=== PATIENT | male | born 1960 | race Caucasian/White ===

== ENCOUNTER 2024-01-21 09:21 | Outpatient (CLI) | payer OTHER, SELFPAY ==
--- NOTE | ~2024-01-21 | PE_ITS ---
EXAMINATION: PET_PETPSMAST_PT DATE: 01/21/2024 12:08 INDICATION: Prostate cancer TECHNIQUE: 5.579 mCi of Illucix Ga-[id number]) was administered i.v. Low dose computed tong graphy (CT) images were acquired from the base of the brain to the base of the brain to the proximal thighs for attenuation correction and anatomic localization. Positron emission tomography (PET) image s were acquired in the same distribution beginning 83 minutes after injection. Images including fused PET/CT images were reconstructed in axial, coronal, and sagittal planes. Automated exposure control technique was employed. The dose-length product was 845.71mGy-cm. COMPARISON: None FINDINGS: Head/neck: Typical pattern of symmetric physiologic increased activity in the lacrimal, parotid and submandibula r glands as well as along the mucosa of the nasal and oral cavities, pharynx and hypopharynx. No path ologically enlarged cervical lymphadenopathy or suspicious foci of increased uptake in the visualized head or neck. Chest: Tubular V-shaped nodular density measuring 7 mm in maximal diameter at the apical segment of the left upper lobe without abnormal PSMA uptake most consistent with a bronchocele. Mild dependent atelectas is in bilateral lower lobes. No other suspicious pulmonary nodules, pneumonia, pulmonary edema or ple ural effusion. Heart size is normal. Coronary artery stenting along the left anterior descending marilou nary artery. Single lead cardiac pacemaker/defibrillator with lead tip near the apex of the right surekha tricle. No pericardial effusion. No pathologically enlarged or PSMA avid thoracic lymphadenopathy. Abdomen/pelvis/proximal thighs: Physiologic renal accumulation and excretion of activity in the kidneys, bladder and along portions o f ureters. Prostatomegaly measuring 4.6 x 3.5 cm. There is an approximately 1 cm focus of increased u ptake at the left posterior peripheral zone of the prostate with maximal SUV of 13.3 consistent with reported biopsy-proven prostate cancer. Normal degree and slightly heterogenous pattern of increased uptake throughout the liver and spleen without radiologic correlate or dominant PSMA avid lesion. The gallbladder, pancreas and bilateral adrenal glands are normal. Moderate uptake scattered throughout the bowels with typical duodenal and proximal jejunal predominance and without radiologic correlate, also likely physiologic. There is mild colonic diverticulosis with a sigmoid predominance. There is no adjacent inflammatory change to suggest diverticulitis. Normal appendix. Very small bilateral fat- containing inguinal hernias. No other abnormal foci of increased uptake or pathologically enlarged ly mphadenopathy in the abdomen, pelvis or proximal thighs. Musculoskeletal: Moderate cervical and lumbar spondylosis with mild intervening thoracic spondylosis. No suspicious ly tic, blastic or PSMA avid bone lesions identified. IMPRESSION: 1. Small focus of moderate increased PSMA activity at the posterior left side of the prostate consist ent with primary prostate cancer. No lesions suspicious for metastatic disease. Reviewed, dictated and finalized at location A. [employer] IMPRESSION: 1. Small focus of moderate increased PSMA activity at the posterior left side o f the prostate consistent with primary prostate cancer. No lesions suspicious f or metastatic disease.
== END 2024-01-21 09:22 | disposition home or self-care (01) ==
LOC: ANHIMG 09:25
PROVIDERS: Visit Provider Urology
DX: C61 Malignant neoplasm of prostate (principal)
CPT/HCPCS: 78815; A9596